=== PATIENT | male | born 1950 | race Caucasian/White ===

== ENCOUNTER 2018-09-29 12:48 | Emergency (ER) | payer MEDICARE ==
[~2018-09-29] VITALS: Ht 180.3 cm; Wt 99.8 kg
--- NOTE | 2018-09-29 14:42 | Diagnostic Imaging Report ---
Exam: Head CT without IV contrast History: Dizziness Comparison studies: None Technique: Axial images were obtained from the skull base to the vertex. Coronal and sagittal images reconstructed from the axial data. Dose modulation, iterative reconstruction, and/or weight based adjustment of the mA/kV was utilized to reduce the radiation dose to as low as reasonably achievable. Radiation dose: Total DLP: 83054 mGy*cm. Estimated effective dose: DLP x 0.015 Intravenous contrast: None Findings: Scalp: No abnormalities. Bones: No fractures, blastic or lytic lesions. Brain sulci: Appropriate for age. Ventricles: Normal in size and configuration. No hydrocephalus. Extra-axial spaces: No masses, no fluid collection. Parenchyma: No abnormal densities. No masses, acute hemorrhage, acute or chronic vascular insults. Sellar/suprasellar region: No abnormalities. Craniocervical junction: Patent foramen magnum. No Chiari one malformation. IMPRESSION: 1. No acute abnormalities. 2. Specifically, no mass, acute hemorrhage or cortical infarct. Signed by: Dr. Andrew Rios M.D. on 09/29/2018 2:39 PM
[2018-09-29] MEDS ORDERED: ASPIRIN 81 MG CHEW TAB PO ONE (15:00)
[2018-09-29] MEDS ORDERED: SODIUM CHLORIDE 0.9% 1000ML 1,000 ML IV SCH (15:30)
[2018-09-29 16:07] VITALS: BP 125/85
== END 2018-09-29 16:21 | disposition home or self-care (01) ==
LOC: FSED 12:48
DX: R42 Dizziness and giddiness (principal); R51 Headache; J45.909 Unspecified asthma, uncomplicated
CPT/HCPCS: 70450; 80048; 80076; 81003; 84484; 85025; 85610; 93005; 99284

== ENCOUNTER → 2021-05-17 | Day surgery (SDC) | payer MEDICARE ==
[2021-05-14 10:13] LABS: BASOPHILS % 0.4 % (0.0-1.0); EOSINOPHILS # (AUTO) 0.3 (0.0-0.4); HEMATOCRIT 47.8 % (38.2-49.6); HEMOGLOBIN 15.7 g/dL (14.0-18.0); LYMPHOCYTES # (AUTO) 1.4 (1.0-3.2); LYMPHOCYTES % 26.1 % (18.0-39.1); MEAN CORPUSCULAR HEMOGLOBIN 30.8 pg (28-32); MEAN CORPUSCULAR HGB CONC 32.8 g/dL (31-35); MEAN CORPUSCULAR VOLUME 93.7 fL (81-99); MONOCYTES # (AUTO) 0.6 (0.2-0.8); MONOCYTES % 10.2 % (4.4-11.3); NEUTROPHILS # (AUTO) 3.1 (2.1-6.9); NEUTROPHILS % 57.9 % (38.7-80.0); PLATELET COUNT 193 x10e3/uL (140-360); RED CELL DISTRIBUTION WIDTH 12.7 % (11.7-14.4)
[2021-05-14 10:17] LABS: POTASSIUM 4.6 mmol/L (3.5-5.1)
[2021-05-14 10:19] LABS: ANION GAP 12.6 mmol/L (8-16); CALCIUM 9.2 mg/dL (8.4-10.2); CREATININE, SERUM 0.94 mg/dL (0.72-1.25)
[~2021-05-17] MED LIST: ALBUTEROL0.63 MG/3 NEB; BUPIVACAINE HCL 0.5% INJ 30 ML VIAL INJ ONE; DEXAMETHASONE SOD PHOS INJ 4 MG/ML VIAL ONE; EPHEDRINE SULFATE INJ 50 MG/ML VIAL ONE; KETOROLAC TROMETHAMINE 30 MG/ML VIAL ONE; LIDOCAINE 1% W/EPINEPHRINE 20 ML VIAL ONE; LIDOCAINE HCL 2% LOCAL INJ 5 ML SDV VIAL INJ ONE; LIPITOR10 MG PO; ONDANSETRON HCL INJ 2MG/ML 2ML 2 MG/ML VIAL ONE; POVIDONE IODINE 0.05% 0.05 % ML PO ONE; PROPOFOL IV EMULSION 10 MG/ML 20 ML VIAL ONE; SEVOFLURANE INHAL SOLN 250 ML PEN BTL ONE; SODIUM CHLORIDE 0.9% 50ML 50 ML ONE
[2021-05-17 10:20] VITALS: BP 133/90
== END | disposition home or self-care (01) ==
LOC: OR 05:45
PROVIDERS: ATTEND Surgery
DX: K40.30 Unilateral inguinal hernia, with obstruction, without gangrene, not specified as recurrent (principal); J45.909 Unspecified asthma, uncomplicated; Z01.810 Encounter for preprocedural cardiovascular examination; Z01.812 Encounter for preprocedural laboratory examination; Z01.818 Encounter for other preprocedural examination
CPT/HCPCS: 36415; 49507; 71046; 80048; 85025; 88302; 93005; C1781; J0690; J1100; J1885; J2001; J2405; J2704; 88313; 88342

== ENCOUNTER 2022-11-02 13:59 | Emergency (ER) | payer MEDICARE ==
[~2022-11-02] VITALS: Ht 180.3 cm; Wt 101.2 kg
[~2022-11-02 13:59] MED LIST changes: -BUPIVACAINE HCL 0.5% INJ 30 ML VIAL INJ ONE; -DEXAMETHASONE SOD PHOS INJ 4 MG/ML VIAL ONE; -EPHEDRINE SULFATE INJ 50 MG/ML VIAL ONE; -KETOROLAC TROMETHAMINE 30 MG/ML VIAL ONE; -LIDOCAINE 1% W/EPINEPHRINE 20 ML VIAL ONE; -LIDOCAINE HCL 2% LOCAL INJ 5 ML SDV VIAL INJ ONE; -ONDANSETRON HCL INJ 2MG/ML 2ML 2 MG/ML VIAL ONE; -POVIDONE IODINE 0.05% 0.05 % ML PO ONE; -PROPOFOL IV EMULSION 10 MG/ML 20 ML VIAL ONE; -SEVOFLURANE INHAL SOLN 250 ML PEN BTL ONE; -SODIUM CHLORIDE 0.9% 50ML 50 ML ONE
[2022-11-02] MEDS ORDERED: PREDNISONE50 MG PO (15:06)
[2022-11-02] MEDS ORDERED: IBUPROFEN800 MG PO (15:06)
[2022-11-02] MEDS ORDERED: IBUPROFEN 400 MG TAB PO STA (15:19)
[2022-11-02] MEDS ORDERED: IBUPROFEN 400 MG TAB ONE (15:25)
== END 2022-11-02 16:02 | disposition home or self-care (01) ==
LOC: FSED 14:28
DX: R50.9 Fever, unspecified (principal); J06.9 Acute upper respiratory infection, unspecified; R05.9 Cough, unspecified; J45.909 Unspecified asthma, uncomplicated; M54.2 Cervicalgia
CPT/HCPCS: 99282

== ENCOUNTER 2022-11-04 10:53 | Inpatient (IN) | payer MEDICARE ==
[~2022-11-04] VITALS: Ht 180.3 cm; Wt 101.2 kg
[2022-11-04] MEDS: SODIUM CHLORIDE 0.9% 1000ML 1,000 ML IV SCH ×2 (03:00→16:28)
[~2022-11-04 10:53] MED LIST changes: +IBUPROFEN800 MG PO; +PREDNISONE50 MG PO
[2022-11-04] MEDS ORDERED: ONDANSETRON HCL INJ 2MG/ML 2ML 2 MG/ML VIAL IV STA (11:14)
[2022-11-04] MEDS ORDERED: Morphine 2mg Syringe 2 MG/ML SYR IV ONE (11:15)
[2022-11-04] MEDS ORDERED: Vancomycin IV 1 GM in SODIUM CHLORIDE 0.9% 250ML 250 ML IV ONE (11:15)
[2022-11-04] MEDS ORDERED: ONDANSETRON HCL INJ 2MG/ML 2ML 2 MG/ML VIAL ONE (11:56)
[2022-11-04] MEDS ORDERED: SODIUM CHLORIDE 0.9% 100 ML ONE (12:01)
[2022-11-04] MEDS ORDERED: Morphine 4mg INJECTION 4 MG/ML INJ ONE (12:01)
[2022-11-04] MEDS ORDERED: Vancomycin IV 1 GM VIAL ONE (12:02)
[2022-11-04] MEDS ORDERED: SODIUM CHLORIDE 0.9% 250ML 250 ML ONE (12:02)
[2022-11-04] MEDS ORDERED: PIPERACILLIN/TAZOBACTAM 3.375 GM VIAL ONE (12:02)
[2022-11-04] MEDS ORDERED: IOPAMIDOL 370 MG/ML 100 ML INFUS..BTL INJ ONE (12:28)
[2022-11-04] MEDS: Vancomycin IV 1 GM in SODIUM CHLORIDE 0.9% 250ML 250 ML IV SCH (13:45)
[2022-11-04] MEDS ORDERED: ONDANSETRON HCL INJ 2MG/ML 2ML 2 MG/ML VIAL IV PRN (13:45)
[2022-11-04] MEDS ORDERED: Morphine 4mg INJECTION 4 MG/ML INJ IV PRN (13:45)
[2022-11-04 16:09] VITALS: BP 123/86
[2022-11-04 16:10] VITALS: BP 123/86
[2022-11-04 16:15] VITALS: BP 123/86
[2022-11-04 20:00] VITALS: BP 122/73
[2022-11-05] VITALS: BP 106/68
[2022-11-05] MEDS: Vancomycin IV 1 GM in SODIUM CHLORIDE 0.9% 250ML 250 ML IV SCH ×2 (01:45→14:38)
[2022-11-05 04:00] VITALS: BP 99/59
[2022-11-05 08:55] VITALS: BP 106/58
[2022-11-05] MEDS ORDERED: PREDNISONE50 MG PO (09:42)
[2022-11-05] MEDS ORDERED: BREO ELLIPTA 11 EACH INH (09:43)
[2022-11-05 11:31] VITALS: BP 121/80
[2022-11-05] MEDS: SODIUM CHLORIDE 0.9% 1000ML 1,000 ML IV SCH ×2 (11:47→13:45)
[2022-11-05 12:17] LABS: BASOPHILS % 0.1 % (0.0-1.0); EOSINOPHILS % 0.3 % (0.0-6.0); HEMATOCRIT 42.5 % (38.2-49.6); HEMOGLOBIN 13.3 g/dL (14.0-18.0); LYMPHOCYTES # (AUTO) 1.3 (1.0-3.2); LYMPHOCYTES % 8.8 % (18.0-39.1); MEAN CORPUSCULAR HEMOGLOBIN 31.1 pg (28-32); MEAN CORPUSCULAR HGB CONC 31.3 g/dL (31-35); MEAN CORPUSCULAR VOLUME 99.5 fL (81-99); MONOCYTES # (AUTO) 0.9 (0.2-0.8); NEUTROPHILS % 84.5 % (38.7-80.0); PLATELET COUNT 164 x10e3/uL (140-360); RED BLOOD COUNT 4.27 x10e6/uL (4.3-5.7); RED CELL DISTRIBUTION WIDTH 13.2 % (11.7-14.4)
[2022-11-05 12:42] LABS: ALBUMIN 2.5 g/dL (3.5-5.0); BILIRUBIN,DIRECT 0.3 mg/dL (0.0-0.5)
[2022-11-05 12:44] LABS: ALBUMIN 2.6 g/dL (3.5-5.0); ALBUMIN/GLOBULIN RATIO 0.7 (0.8-2.0); ANION GAP 12.9 mmol/L (8-16); CALCIUM 8.5 mg/dL (8.4-10.2); CREATININE, SERUM 0.9 mg/dL (0.72-1.25); POTASSIUM 3.9 mmol/L (3.5-5.1)
[2022-11-05 13:03] LABS: THYROID STIMULATING HORMONE 1.009 uIU/mL (0.350-4.940)
[2022-11-05] MEDS: KETOROLAC TROMETHAMINE 30 MG/ML VIAL IM SCH ×2 (14:39→17:10)
[2022-11-05 15:43] VITALS: BP 107/61
[2022-11-05 20:00] VITALS: BP 98/66
[2022-11-06] VITALS: BP 93/61
[2022-11-06] MEDS: KETOROLAC TROMETHAMINE 30 MG/ML VIAL IM SCH (00:28)
[2022-11-06] MEDS: Vancomycin IV 1 GM in SODIUM CHLORIDE 0.9% 250ML 250 ML IV SCH ×2 (01:52→13:45)
[2022-11-06] MEDS: SODIUM CHLORIDE 0.9% 1000ML 1,000 ML IV SCH ×4 (05:06→21:45)
[2022-11-06 07:36] VITALS: BP 115/85
[2022-11-06] MEDS: ENOXAPARIN SOD INJ 40 MG/0.4 ML SYR SC SCH (09:22)
[2022-11-06 11:13] VITALS: BP 99/68
[2022-11-06] MEDS ORDERED: ONDANSETRON HCL 4 MG ORAL DISINTEGRATING TAB PO PRN (13:45)
[2022-11-06 15:31] VITALS: BP 104/65
[2022-11-06 20:00] VITALS: BP 107/73
[2022-11-06 21:02] VITALS: BP 104/65
[2022-11-06] MEDS: HYDROCODONE/APAP 7.5MG-325MG 1 EA TAB PO PRN (21:20)
[2022-11-07] VITALS (7 sets, daily range): BP systolic 102–119; BP diastolic 65–80
[2022-11-07] MEDS: Vancomycin IV 1 GM in SODIUM CHLORIDE 0.9% 250ML 250 ML IV SCH ×2 (02:46→14:00)
[2022-11-07] MEDS: SODIUM CHLORIDE 0.9% 1000ML 1,000 ML IV SCH ×4 (05:33→21:40)
[2022-11-07] MEDS: HYDROCODONE/APAP 7.5MG-325MG 1 EA TAB PO PRN ×2 (06:08→16:32)
[2022-11-07] MEDS: ENOXAPARIN SOD INJ 40 MG/0.4 ML SYR SC SCH (08:48)
[2022-11-08] VITALS (7 sets, daily range): BP systolic 101–137; BP diastolic 66–90
[2022-11-08] MEDS: Vancomycin IV 1 GM in SODIUM CHLORIDE 0.9% 250ML 250 ML IV SCH ×2 (02:13→13:57)
[2022-11-08] MEDS: HYDROCODONE/APAP 7.5MG-325MG 1 EA TAB PO PRN ×2 (02:15→14:01)
[2022-11-08] MEDS: SODIUM CHLORIDE 0.9% 1000ML 1,000 ML IV SCH ×2 (05:40→13:57)
[2022-11-08] MEDS: ENOXAPARIN SOD INJ 40 MG/0.4 ML SYR SC SCH (09:16)
[2022-11-09] MEDS: SODIUM CHLORIDE 0.9% 1000ML 1,000 ML IV SCH ×4 (00:08→22:15)
[2022-11-09] MEDS: Vancomycin IV 1 GM in SODIUM CHLORIDE 0.9% 250ML 250 ML IV SCH ×2 (01:12→14:06)
[2022-11-09] MEDS: HYDROCODONE/APAP 7.5MG-325MG 1 EA TAB PO PRN ×2 (02:09→19:45)
[2022-11-09 04:00] VITALS: BP 130/84
[2022-11-09 06:45] LABS: BASOPHILS % 0.5 % (0.0-1.0); EOSINOPHILS # (AUTO) 0.4 (0.0-0.4); EOSINOPHILS % 6.3 % (0.0-6.0); HEMATOCRIT 33.5 % (38.2-49.6); HEMOGLOBIN 11.3 g/dL (14.0-18.0); LYMPHOCYTES # (AUTO) 1.5 (1.0-3.2); LYMPHOCYTES % 22.7 % (18.0-39.1); MEAN CORPUSCULAR HEMOGLOBIN 31.2 pg (28-32); MEAN CORPUSCULAR HGB CONC 33.7 g/dL (31-35); MEAN CORPUSCULAR VOLUME 92.5 fL (81-99); MONOCYTES # (AUTO) 0.6 (0.2-0.8); MONOCYTES % 9.6 % (4.4-11.3); NEUTROPHILS % 60.3 % (38.7-80.0); PLATELET COUNT 187 x10e3/uL (140-360); RED BLOOD COUNT 3.62 x10e6/uL (4.3-5.7); RED CELL DISTRIBUTION WIDTH 13.1 % (11.7-14.4)
[2022-11-09 07:14] LABS: ANION GAP 10.8 mmol/L (8-16); CALCIUM 8.1 mg/dL (8.4-10.2); CREATININE, SERUM 0.79 mg/dL (0.72-1.25); POTASSIUM 3.8 mmol/L (3.5-5.1)
[2022-11-09 08:00] VITALS: BP 130/84
[2022-11-09] MEDS: ENOXAPARIN SOD INJ 40 MG/0.4 ML SYR SC SCH (09:01)
[2022-11-09 20:00] VITALS: BP 128/87
[2022-11-10] VITALS (8 sets, daily range): BP systolic 118–135; BP diastolic 84–92
[2022-11-10] MEDS: Vancomycin IV 1 GM in SODIUM CHLORIDE 0.9% 250ML 250 ML IV SCH ×2 (02:05→14:39)
[2022-11-10] MEDS: SODIUM CHLORIDE 0.9% 1000ML 1,000 ML IV SCH ×2 (06:11→14:15)
[2022-11-10] MEDS: ENOXAPARIN SOD INJ 40 MG/0.4 ML SYR SC SCH (10:00)
[2022-11-11] VITALS: BP 135/62
[2022-11-11] MEDS: SODIUM CHLORIDE 0.9% 1000ML 1,000 ML IV SCH ×3 (00:26→16:43)
[2022-11-11] MEDS: Vancomycin IV 1 GM in SODIUM CHLORIDE 0.9% 250ML 250 ML IV SCH ×2 (02:22→13:42)
[2022-11-11] MEDS: HYDROCODONE/APAP 7.5MG-325MG 1 EA TAB PO PRN ×5 (02:23→23:44)
[2022-11-11 04:00] VITALS: BP 128/63
[2022-11-11 08:00] VITALS: BP 143/91
[2022-11-11 09:09] LABS: BASOPHILS % 0.3 % (0.0-1.0); EOSINOPHILS # (AUTO) 0.2 (0.0-0.4); EOSINOPHILS % 3.2 % (0.0-6.0); HEMATOCRIT 38.7 % (38.2-49.6); HEMOGLOBIN 12.2 g/dL (14.0-18.0); LYMPHOCYTES # (AUTO) 0.7 (1.0-3.2); LYMPHOCYTES % 12.6 % (18.0-39.1); MEAN CORPUSCULAR HEMOGLOBIN 30.8 pg (28-32); MEAN CORPUSCULAR HGB CONC 31.5 g/dL (31-35); MEAN CORPUSCULAR VOLUME 97.7 fL (81-99); MONOCYTES # (AUTO) 0.5 (0.2-0.8); NEUTROPHILS # (AUTO) 4.4 (2.1-6.9); NEUTROPHILS % 75.6 % (38.7-80.0); PLATELET COUNT 216 x10e3/uL (140-360); RED BLOOD COUNT 3.96 x10e6/uL (4.3-5.7); RED CELL DISTRIBUTION WIDTH 13.1 % (11.7-14.4)
[2022-11-11] MEDS: ONDANSETRON HCL INJ 2MG/ML 2ML 2 MG/ML VIAL IV PRN ×3 (09:09→23:44)
[2022-11-11] MEDS: ENOXAPARIN SOD INJ 40 MG/0.4 ML SYR SC SCH (09:12)
[2022-11-11 09:24] LABS: ALBUMIN 2.5 g/dL (3.5-5.0); ALBUMIN/GLOBULIN RATIO 0.6 (0.8-2.0); ANION GAP 11.9 mmol/L (8-16); CALCIUM 8.5 mg/dL (8.4-10.2); CREATININE, SERUM 0.77 mg/dL (0.72-1.25); POTASSIUM 3.9 mmol/L (3.5-5.1)
[2022-11-11 12:33] VITALS: BP 136/86
[2022-11-11 16:20] LABS: ALBUMIN 2.1 g/dL (3.5-5.0); BILIRUBIN,DIRECT 0.2 mg/dL (0.0-0.5)
[2022-11-11 16:39] VITALS: BP 139/96
[2022-11-11] MEDS: LACTOBACILLUS ACIDOPHILUS CAPSULE PO SCH ×3 (16:48→20:31)
[2022-11-11 18:50] LABS: CLARITY,URINE SL CLOUDY (CLEAR); COLOR,URINE YELLOW (YELLOW); KETONES,URINE TRACE (NEGATIVE); LEUKOCYTE ESTERASE ,URINE NEGATIVE (NEGATIVE); NITRITE,URINE NEGATIVE (NEGATIVE); PROTEIN,URINE DIPSTICK NEGATIVE (NEGATIVE); URINE UROBILINOGEN 0.2 mg/dL (0.2 - 1)
[2022-11-11 19:04] LABS: BACTERIA,URINE RARE /HPF; RBC,URINE 0-5 /HPF (0-5); WBC,URINE (MAN) 0-5 /HPF (0-5)
[2022-11-11 20:00] VITALS: BP 126/81
[2022-11-11 23:06] LABS: % IRON SATURATION 28 % (15-50); IRON 51 ug/dL (65-175); TOTAL IRON BINDING CAPACITY 183 ug/dL (261-478); TRANSFERRIN 131 mg/dL (174-364)
[2022-11-12] VITALS (7 sets, daily range): BP systolic 118–141; BP diastolic 74–88
[2022-11-12] MEDS: Vancomycin IV 1 GM in SODIUM CHLORIDE 0.9% 250ML 250 ML IV SCH ×2 (01:30→14:02)
[2022-11-12] MEDS: SODIUM CHLORIDE 0.9% 1000ML 1,000 ML IV SCH ×2 (05:55→16:32)
[2022-11-12] MEDS: ONDANSETRON HCL INJ 2MG/ML 2ML 2 MG/ML VIAL IV PRN (06:00)
[2022-11-12] MEDS: LACTOBACILLUS ACIDOPHILUS CAPSULE PO SCH ×3 (08:40→20:15)
[2022-11-12] MEDS: ENOXAPARIN SOD INJ 40 MG/0.4 ML SYR SC SCH (08:41)
[2022-11-12] MEDS: IRON-VITAMIN-MINERAL CAPSULE PO SCH (16:32)
[2022-11-12] MEDS: METOCLOPRAMIDE HCL 10 MG/2ML VIAL IV SCH (20:15)
[2022-11-13] VITALS (7 sets, daily range): BP systolic 115–145; BP diastolic 69–95
[2022-11-13] MEDS: METOCLOPRAMIDE HCL 10 MG/2ML VIAL IV SCH ×4 (01:01→17:39)
[2022-11-13] MEDS: Vancomycin IV 1 GM in SODIUM CHLORIDE 0.9% 250ML 250 ML IV SCH ×2 (01:46→13:49)
[2022-11-13] MEDS: SODIUM CHLORIDE 0.9% 1000ML 1,000 ML IV SCH ×2 (08:22→20:54)
[2022-11-13] MEDS: IRON-VITAMIN-MINERAL CAPSULE PO SCH ×2 (09:58→17:39)
[2022-11-13] MEDS: LACTOBACILLUS ACIDOPHILUS CAPSULE PO SCH ×3 (09:59→20:52)
[2022-11-14] VITALS: BP 127/87
[2022-11-14] MEDS: METOCLOPRAMIDE HCL 10 MG/2ML VIAL IV SCH ×3 (01:10→13:00)
[2022-11-14] MEDS: Vancomycin IV 1 GM in SODIUM CHLORIDE 0.9% 250ML 250 ML IV SCH (02:17)
[2022-11-14 07:38] VITALS: BP 134/92
[2022-11-14 08:00] VITALS: BP 134/92
[2022-11-14] MEDS ORDERED: ONDANSETRON HCL 4 MG ORAL DISINTEGRATING TAB PO PRN (09:30)
[2022-11-14] MEDS: LACTOBACILLUS ACIDOPHILUS CAPSULE PO SCH ×2 (09:47→16:00)
[2022-11-14] MEDS: IRON-VITAMIN-MINERAL CAPSULE PO SCH (09:47)
[2022-11-14] MEDS: SODIUM CHLORIDE 0.9% 1000ML 1,000 ML IV SCH (11:00)
[2022-11-14 11:20] VITALS: BP 131/83
[2022-11-14 15:22] VITALS: BP 144/92
[2022-11-14] MEDS ORDERED: DOXYCYCLINE HY100 MG PO (16:47)
== END 2022-11-14 17:54 | disposition home or self-care (01) | DRG 156 ==
LOC: FSED 11:15 → ERHOLD 13:45 → INTOOBSV 13:45 → ERHOLD 15:20 → MED/SURG2 15:20 → OBSVTOIN 11-06 11:12
PROVIDERS: ADMIT Internal Medicine; ATTEND Internal Medicine
PROC: 02HV33Z Insertion of Infusion Device into Superior Vena Cava, Percutaneous Approach (ICD-10-PCS; principal; 2022-11-10)
DX: K11.21 Acute sialoadenitis (principal); R11.2 Nausea with vomiting, unspecified; R13.10 Dysphagia, unspecified; Z20.822 Contact with and (suspected) exposure to COVID-19; D64.9 Anemia, unspecified
CPT/HCPCS: 36415; 36569; 70491; 71045; 71046; 74018; 80048; 80053; 80076; 80202; 81001; 82150; 82270; 82607; 82746; 83036; 83540; 83690; 84443; 84466; 85025; 85045; 87040; 94799; 96361; 96374; 96376; 99252; 99284; G0378; J1650; J1885; J2270; J2405; J2543; J2765; J3370; J7030; J7050; Q0162; Q9967

== ENCOUNTER 2025-02-17 11:49 | Emergency (ER) | payer MEDICARE ==
[~2025-02-17] VITALS: Ht 180.3 cm; Wt 101.2 kg
[2025-02-17 12:21] VITALS: TEMP 99
[2025-02-17 13:30] VITALS: PULSE 63; RESP 16; O2SAT 97
== END 2025-02-17 13:45 | disposition home or self-care (01) ==
LOC: ER 11:57
DX: N50.811 Right testicular pain (principal); N44.00 Torsion of testis, unspecified; J45.909 Unspecified asthma, uncomplicated
CPT/HCPCS: 99282

== ENCOUNTER → 2025-02-17 | Outpatient (REF) | payer MEDICARE ==
[~2025-02-17] MED LIST changes: +BREO ELLIPTA 11 EACH INH; +DOXYCYCLINE HY100 MG PO
== END ==
LOC: US 10:30
PROVIDERS: ATTEND Urology
DX: Q55.22 Retractile testis (principal); N50.811 Right testicular pain
CPT/HCPCS: 76870; 93976

== ENCOUNTER → 2025-03-24 | Day surgery (SDC) | payer MEDICARE ==
[~2025-03-24] MED LIST changes: +ACETAMINOPHEN 1000 MG/100 ML 100 ML IV ONE; +DEXAMETHASONE SOD PHOS INJ 4 MG/ML SDV ONE; +EPHEDRINE SULFATE INJ 50 MG/ML VIAL ONE; +FENTANYL CITRATE/PF 100MCG/2 ML INJ ONE; +LIDOCAINE HCL 2% LOCAL INJ 5 ML SDV VIAL INJ ONE; +MIDAZOLAM HCL 2 MG/2 ML VIAL ONE; +ONDANSETRON HCL INJ 2MG/ML 2ML 2 MG/ML VIAL ONE; +PHENYLEPHRINE HCL 1% 10 MG/ML VIAL ONE; +PROPOFOL IV EMULSION 10 MG/ML 20 ML VIAL ONE; +SEVOFLURANE INHAL SOLN 250 ML PEN BTL ONE
[2025-03-24 11:20] LABS: BASOPHILS % 0.6 % (0.0-1.0); EOSINOPHILS # (AUTO) 0.3 (0.0-0.4); EOSINOPHILS % 5.5 % (0.0-6.0); HEMATOCRIT 41.3 % (38.2-49.6); HEMOGLOBIN 14.3 g/dL (14.0-18.0); LYMPHOCYTES # (AUTO) 1.4 (1.0-3.2); MEAN CORPUSCULAR HGB CONC 34.6 g/dL (31-35); MEAN CORPUSCULAR VOLUME 92.4 fL (81-99); MONOCYTES # (AUTO) 0.6 (0.2-0.8); MONOCYTES % 11.4 % (4.4-11.3); NEUTROPHILS # (AUTO) 2.9 (2.1-6.9); NEUTROPHILS % 55.1 % (38.7-80.0); PLATELET COUNT 162 x10e3/uL (140-360); RED BLOOD COUNT 4.47 x10e6/uL (4.3-5.7); RED CELL DISTRIBUTION WIDTH 13.1 % (11.7-14.4); WHITE BLOOD COUNT 5.26 x10e3/uL (4.8-10.8)
[2025-03-24 11:48] LABS: ANION GAP 13.2 mmol/L (8-16); CALCIUM 8.7 mg/dL (8.4-10.2); CREATININE, SERUM 0.84 mg/dL (0.72-1.25); POTASSIUM 4.2 mmol/L (3.5-5.1)
[2025-03-24] MEDS: SODIUM CHLORIDE 0.9% 1000ML 1,000 ML ONE (12:39)
[2025-03-24] MEDS: CEFAZOLIN SODIUM 2 GM ONE (12:41)
[2025-03-24 18:30] VITALS: BP 133/83; PULSE 77; RESP 15; O2SAT 96
== END | disposition home or self-care (01) ==
LOC: OR 09:27
PROVIDERS: ATTEND Urology
DX: N50.0 Atrophy of testis (principal); N39.0 Urinary tract infection, site not specified; N40.1 Benign prostatic hyperplasia with lower urinary tract symptoms; N13.8 Other obstructive and reflux uropathy; J45.909 Unspecified asthma, uncomplicated; G89.29 Other chronic pain; M06.9 Rheumatoid arthritis, unspecified; M19.90 Unspecified osteoarthritis, unspecified site; Z79.899 Other long term (current) drug therapy
CPT/HCPCS: 36415; 71046; 74420; 80048; 85025; 88304; 88305; 93005; J1100; J2003; J2250; J2371; J2405; J7030

== ENCOUNTER → 2025-06-26 | Outpatient (REF) | payer MEDICARE ==
[~2025-06-26] MED LIST changes: -ACETAMINOPHEN 1000 MG/100 ML 100 ML IV ONE; -DEXAMETHASONE SOD PHOS INJ 4 MG/ML SDV ONE; -EPHEDRINE SULFATE INJ 50 MG/ML VIAL ONE; -FENTANYL CITRATE/PF 100MCG/2 ML INJ ONE; -LIDOCAINE HCL 2% LOCAL INJ 5 ML SDV VIAL INJ ONE; -MIDAZOLAM HCL 2 MG/2 ML VIAL ONE; -ONDANSETRON HCL INJ 2MG/ML 2ML 2 MG/ML VIAL ONE; -PHENYLEPHRINE HCL 1% 10 MG/ML VIAL ONE; -PROPOFOL IV EMULSION 10 MG/ML 20 ML VIAL ONE; -SEVOFLURANE INHAL SOLN 250 ML PEN BTL ONE
[2025-06-26 12:30] LABS: BASOPHILS % 0.3 % (0.0-1.0); EOSINOPHILS % 2.6 % (0.0-6.0); LYMPHOCYTES % 25.0 % (18.0-39.1); MONOCYTES % 8.4 % (4.4-11.3); NEUTROPHILS % 63.4 % (38.7-80.0); RED CELL DISTRIBUTION WIDTH 13.2 % (11.7-14.4)
[2025-06-26 13:00] LABS: EST GLOMERULAR FILTRATION RATE 85.0 ML/MIN (>=60)
== END ==
LOC: RAD 08:00 → EDSTATUS 07-03 07:00
PROVIDERS: ATTEND Urology
DX: Z01.812 Encounter for preprocedural laboratory examination (principal); R97.20 Elevated prostate specific antigen [PSA]; N40.1 Benign prostatic hyperplasia with lower urinary tract symptoms; N39.41 Urge incontinence; R35.1 Nocturia
CPT/HCPCS: 36415; 80048; 85025